=== PATIENT | male | born 1950 | race African-American/Black ===

== ENCOUNTER → 2016-06-01 | Outpatient (CLI) | payer MEDICARE ==
[2015-12-12 12:30] VITALS: BP 169/100
[~2016-06-01] MED LIST: AMLO5TAB2 PO; FLUT9.9S NS; LEVO50TA5 PO; LISI2.5T PO; METO-269 PO; PANT40TA5 PO; PROAIR HFA8.5 GM INH; REGADENOSON 0.4 MG/5 ML DISP.SYRIN. IV ONE; SIMV20TA3 PO
--- NOTE | 2016-06-01 13:35 | CARD ---
APPROVED REPORT EXAM: Two-dimensional and M-mode echocardiogram with Doppler and color Doppler. Other Information Quality : Good INDICATION HOCM 2D DIMENSIONS RVDd3.4 (2.9-3.5cm)Left Atrium(2D)2.8 (1.6-4.0cm) IVSd0.9 (0.7-1.1cm)Aortic Root(2D)2.5 (2.0-3.7cm) LVDd3.8 (3.9-5.9cm)LVOT Diameter2.0 (1.8-2.4cm) PWd0.9 (0.7-1.1cm)LVDs2.7 (2.5-4.0cm) FS (%) 30.0 %SV32.3 ml LVEF(%)60.0 (>50%) Aortic Valve AoV Peak Alexy.182.9cm/sAoV VTI34.6cm AO Peak GR.13.4mmHgLVOT Peak Alexy.158.9cm/s AO Mean GR.7mmHgAVA (VMAX)2.71cm2 ALLEN (VTI)3.24jj8BB P 1/2 Shvm133jv Mitral Valve MV E Mgltsgyf31.8cm/sMV DECEL [id number] MV A Smbrkndc383.6cm/sE/A Ratio0.7 LEFT VENTRICLE The left ventricle is normal size. There is normal left ventricular wall thickness. The left ventricu lar systolic function is normal. The Ejection Fraction is 60-65%. There is normal LV segmental wall m otion. There is a left ventricular outflow tract gradient of 3.2 m/s and 41 mmHg. Transmitral Doppler flow pattern is Grade I-abnormal relaxation pattern. RIGHT VENTRICLE The right ventricle is normal size. The right ventricular systolic function is normal. ATRIA The left atrium size is normal. The right atrium size is normal. The interatrial septum is intact wit h no evidence for an atrial septal defect or patent foramen ovale as noted on 2-D or Doppler imaging. AORTIC VALVE The aortic valve is calcified but opens well. Doppler and Color Flow revealed moderate aortic regurgi tation. There is no significant aortic valvular stenosis. MITRAL VALVE The mitral valve is normal in structure and function. There is no evidence of mitral valve prolapse. There is no mitral valve stenosis. Doppler and Color-flow revealed mild mitral regurgitation. TRICUSPID VALVE The tricuspid valve is normal in structure and function. Doppler and Color Flow revealed no tricuspid valve regurgitation noted. There is no tricuspid valve stenosis. PULMONIC VALVE The pulmonary valve is normal in structure and function. Doppler and Color Flow revealed no pulmonic valvular regurgitation. There is no pulmonic valvular stenosis. GREAT VESSELS The aortic root is normal in size. The ascending aorta is normal in size. The IVC is normal in size a nd collapses >50% with inspiration. PERICARDIAL EFFUSION There is no evidence of significant pericardial effusion. Critical Notification Critical Value: No <Conclusion> The left ventricular systolic function is normal. The Ejection Fraction is 60-65%. There is normal LV segmental wall motion. Hypertrophic obstructive cardiomyopathy with left ventricular outflow tract gradient of 41 mmHg. Transmitral Doppler flow pattern is Grade I-abnormal relaxation pattern. Moderate aortic regurgitation. Systolic anterior motion (BRIDGER) of mitral valve with mild mitral regurgitation. There is no evidence of significant pericardial effusion.
--- NOTE | 2016-06-04 08:05 | RAD ---
APPROVED REPORT Test Type: Pharmacological Stress Nurse/Tech: SHIV James RN Test Indications: CAMPOS Cardiac History: HTN, see EHR Medications: see EHR Medical History: see EHR Resting ECG: SR BBB Resting Heart Rate: 79 bpm Resting Blood Pressure: 143/78mmHg Pretest Chest Pain: No chest pain Nurse/Tech Notes Lungs CTA, murmur Consent: The procedure was explained to the patient in lay terms. Informed consent was witnessed. Geovanny eout was entered into [employer]. History and Stress Test performed by RT Ysabel (R) (N) Pharm. Details Pharmacologic stress testing was performed using 0.4mg per 5ml of regadenoson given intravenously ove r 7-10 seconds. Stress Symptoms No chest pain or symptoms. POST EXERCISE Reason for Termination: Infusion complete Max HR: 134 bpm 103% of Maximum Predicted HR: 130 bpm Max Blood Pressure: 128/73mmHg Chest Pain: No. Arrhythmia: No. ST Change: No. INTERPRETATION Stress EKG Conclusion: No acute changes were noted. Imaging Protocol IMAGE PROTOCOL: Rest Tc-99m/stress Tc-99m 1 day Rest: Stress: Viability: Radiopharm.Tc99m KdiigymbyIq34k Sestamibi Eoow66dLm 33mCi Duration 20min. 15min. Img Date 06/01/2016 06/01/2016 Inj-Img Dpos03hbb. 60min. Rest Admin Site:IV - Left AntecubitalAdministrator:ALHAJI Tuttle, SHEA (R)(N) Stress Admin Site: IV - Left AntecubitalAdministrator: RT Ysabel (R)(N) STRESS DATA End Diast. Vol.106.0mlAv. Heart Rate91.0bpm LVEDV index BSA2.0mlCardiac Output0.1L/min End Syst. Vol.26.0mlCO Index BSA7.3L/min LVESV index BSA0.0mlMyocardial Uzrd720.0g Eject. Zdnwqjsh82.0% Stress Rates Pk. Fill Rate4.18EDV/secLVtime Pk. Fill 185.16msec Pk. Empty Rate5.27ESV/secLVtime Pk. Jzgda908.00msec 1/3 Pk. Fill1.24EDV/sec Stress Scores Regional WT0.00Summed WT2.00 Regional WM0.00Summed WM1.00 The rest and stress images show normal perfusion, normal contraction and thickening. LV Perf. Quant 17 Seg. SSS1.00 17 Seg. SRS3.00 17 Seg. SDS1.00 Stress Defect Extent (% LAD)0.00Rest Defect Extent (% LAD)0.00Rev. Defect Extent (% LAD)0.00 Stress Defect Extent (% LCX) 5.00Rest Defect Extent (% LCX)15.00Rev. Defect Extent (% LCX)1.30 Stress Defect Extent (% RCA)0.00Rest Defect Extent (% RCA)10.00Rev. Defect Extent (% RCA)0.00 Stress Defect Extent (% INGA)0.90Rest Defect Extent (% INGA)7.00Rev. Defect Extent (% INGA)0.20 Other Information Quality:Good Risk Assessment: Low Risk Conclusion 1. No acute EKG changes with vasodilator stress. 2. Normal perfusion at stress/rest 3. Low risk study. EF > 70%
== END | disposition home or self-care (01) ==
LOC: NM 10:05
PROVIDERS: ATTEND Internal Medicine Cardiovascular Disease
DX: I42.1 Obstructive hypertrophic cardiomyopathy (principal); R06.09 Other forms of dyspnea
CPT/HCPCS: 78452; 93017; 93306; 96374; 96375; 96376; A9500; J2785

== ENCOUNTER → 2017-12-03 | Outpatient (CLI) | payer BC ==
[2015-12-12 12:30] VITALS: BP 169/100
[~2017-12-03] MED LIST changes: -REGADENOSON 0.4 MG/5 ML DISP.SYRIN. IV ONE
--- NOTE | 2017-12-03 12:33 | CARD ---
MR#: [id number] Date of Study: 12/03/2017 Ordering Physician: DARIA RAE, Referring Physician: DARIA RAE, Tech: APPROVED REPORT PROCEDURE: Successful implantation of [employer] Biomonitor loop recorder INDICATIONS: Hypertrophic cardiomyopathy and syncope r/o ventricular arrhythmias PROCEDURE DETAILS: An informed consent was obtained from patient. Patient was brought to the procedure suite and her le ft chest and shoulder were prepped and draped in the usual fashion. 20 mL of 2% lidocaine was infilt rated into the skin and subcutaneous tissues for local anesthesia. An incision was made in the left third intercostal space 1 inch from midsternal line and using the introducer provided with the kit a track was created in subcutaneous tissue. Subsequently, with the help of the deployer provided with the kit, a [employer] Biomon[employer] loop recorder was placed in the subcutaneous tissue. The incision wa s closed in one layer. Hemostasis was secured. Patient tolerated the procedure well. There were no immediate complications. At the end of procedure, the device showed sensing amplitude of 0.9 mV. CONCLUSION: Successful implantation of [employer] Biomonitor loop recorder for syncope of uncertain etiology in a patient with hypertrophic cardiomyopathy. Signed by : Daria Rae, Electronically Approved : 12/03/2017 12:32:21
== END | disposition home or self-care (01) ==
LOC: LINQ 11:02
PROVIDERS: ATTEND Internal Medicine Cardiovascular Disease
DX: R55 Syncope and collapse (principal); I42.2 Other hypertrophic cardiomyopathy; I10 Essential (primary) hypertension; E03.9 Hypothyroidism, unspecified; M17.11 Unilateral primary osteoarthritis, right knee; Z85.21 Personal history of malignant neoplasm of larynx; Z82.49 Family history of ischemic heart disease and other diseases of the circulatory system; Z79.899 Other long term (current) drug therapy
CPT/HCPCS: 33282; C1764

== ENCOUNTER → 2017-12-26 | Outpatient (CLI) | payer BC ==
[2015-12-12 12:30] VITALS: BP 169/100
[~2017-12-26] MED LIST changes: -AMLO5TAB2 PO; +AMLO5TAB7 PO
--- NOTE | 2017-12-26 12:41 | CARD ---
MR#: [id number] Date of Study: 12/26/2017 Ordering Physician: DARIA SHRESTHA, Referring Physician: Shashank ANDREWS: KIM Hartmann APPROVED REPORT EXAM: Two-dimensional and M-mode echocardiogram with Doppler and color Doppler. Other Information Quality : AverageHR: 81bpm INDICATION Cardiomyopathy 2D DIMENSIONS RVDd3.4 (2.9-3.5cm)Left Atrium(2D)2.9 (1.6-4.0cm) IVSd1.0 (0.7-1.1cm)Aortic Root(2D)3.3 (2.0-3.7cm) LVDd4.2 (3.9-5.9cm)LVOT Diameter2.3 (1.8-2.4cm) PWd1.1 (0.7-1.1cm)LVDs2.3 (2.5-4.0cm) FS (%) 44.4 %SV60.5 ml Aortic Valve AoV Peak Alexy.168.7cm/sAoV VTI33.0cm AO Peak GR.11.4mmHgLVOT Peak Alexy.110.5cm/s LVOT VTI 20.92cmAO Mean GR.6mmHg ALLEN (VMAX)2.03gc8JRU (VTI)2.69cm2 AI P 1/2 Gssd893eq Mitral Valve MV E Vdxmrpct42.2cm/sMV DECEL [id number] MV A Nzljcsza29.6cm/sMV KIJ80xp E/A Ratio0.7MVA (PHT)2.49cm2 Pulmonary Valve PV Peak Bgniswkx71.2cm/sPV Peak Grad.2mmHg Tricuspid Valve TR P. Vtmhilek087qx/sTR Peak Gr.7mmHg LEFT VENTRICLE The left ventricle is normal size. There is normal left ventricular wall thickness. The left ventricu lar systolic function is normal. Left ventricular ejection fraction is 60-65%. There is normal LV seg mental wall motion. Transmitral Doppler flow pattern is abnormal. RIGHT VENTRICLE The right ventricle is normal size. The right ventricular systolic function is normal. ATRIA The left atrium size is normal. The right atrium size is normal. The interatrial septum is intact wit h no evidence for an atrial septal defect or patent foramen ovale as noted on 2-D or Doppler imaging. AORTIC VALVE The aortic valve is thickened but opens well. Doppler and Color Flow revealed mild aortic regurgitati on. There is no significant aortic valvular stenosis. There is no aortic valvular vegetation. MITRAL VALVE The mitral valve is thickened but opens well. There is no evidence of mitral valve prolapse. There is no mitral valve stenosis. Doppler and Color Flow revealed no mitral valve regurgitation noted. TRICUSPID VALVE The tricuspid valve leaflets are thickened , but open well. Doppler and Color Flow revealed trace tri cuspid regurgitation. There is no tricuspid valve prolapse or vegetation. There is no tricuspid valve stenosis. PULMONIC VALVE The pulmonic valve is not well visualized. Doppler and Color Flow revealed no pulmonic valvular regur gitation. There is no pulmonic valvular stenosis. GREAT VESSELS The aortic root is normal in size. The aortic root displays mild sclerocalcific changes of the aortic root. The IVC is normal in size and collapses >50% with inspiration. PERICARDIAL EFFUSION There is no pleural effusion. There is no evidence of significant pericardial effusion. Critical Notification Critical Value: No <Conclusion> The left ventricle is normal size. The left ventricular systolic function is normal. Left ventricular ejection fraction is 60-65%. There is no significant aortic valvular stenosis. Doppler and Color Flow revealed mild aortic regurgitation. Doppler and Color Flow revealed no mitral valve regurgitation noted. Doppler and Color Flow revealed trace tricuspid regurgitation. Signed by : Kishore Holland MD Electronically Approved : 12/26/2017 12:40:11
== END | disposition home or self-care (01) ==
LOC: ECHO 10:07
PROVIDERS: ATTEND Internal Medicine Cardiovascular Disease
DX: I35.1 Nonrheumatic aortic (valve) insufficiency (principal); I10 Essential (primary) hypertension; E03.9 Hypothyroidism, unspecified; M17.11 Unilateral primary osteoarthritis, right knee; Z85.21 Personal history of malignant neoplasm of larynx; Z82.49 Family history of ischemic heart disease and other diseases of the circulatory system
CPT/HCPCS: 93306